=== PATIENT | female | born 1945 | race Caucasian/White ===

== ENCOUNTER 2022-08-01 09:10 | Outpatient (OUT) | payer MEDICARE, SELFPAY ==
[2022-08-01 10:42] LABS: Alanine Aminotransferase 75 U/L (14-59); Albumin Globulin Ratio 1.1; Albumin Level 3.7 g/dL (3.4-5.0); Alkaline Phosphatase 79 U/L (46-116); Aspartate Amino Transferase 46 U/L (15-37); BUN Creatinine Ratio 21.7; Bilirubin Total 0.6 mg/dL (0.2-1.0); Calcium 9.3 mg/dL (8.5-10.1); Carbon Dioxide 33.2 mmol/L (21.0-32.0); Chloride 104 mmol/L (98-107); Estimated GFR (African America >60 (>=60); Estimated GFR (Non-African Ame >60 (>=60); Globulin 3.5 g/dL; Glucose 122 mg/dL (74-106); Potassium 4.2 mmol/L (3.5-5.1); Sodium 142 mmol/L (136-145); Total Protein 7.2 g/dL (6.4-8.2)
[2022-08-01 10:43] LABS: Estimated Average Glucose 126 mg/dL
[2022-08-01 10:50] LABS: Thyroid Stimulating Hormone 4.137 uIU/mL (0.358-3.740)
== END 2022-08-01 09:11 ==
LOC: LAB 09:15
PROVIDERS: PCP Internal Medicine; Visit Provider Internal Medicine
DX: R74.01 Elevation of levels of liver transaminase levels (principal); E11.65 Type 2 diabetes mellitus with hyperglycemia; R63.4 Abnormal weight loss
CPT/HCPCS: 36415; 80053; 83036; 84443

== ENCOUNTER 2022-11-08 08:34 | Outpatient (OUT) | payer MEDICARE, SELFPAY ==
[2022-11-08 10:17] LABS: Free T4 0.73 ng/dL (0.76-1.46)
[2022-11-08 10:22] LABS: Thyroid Stimulating Hormone 3.238 uIU/mL (0.358-3.740)
[2022-11-08 10:52] LABS: Estimated Average Glucose 134 mg/dL; Glycohemoglobin A1C 6.3 % (4.5-6.2)
[2022-11-09 04:07] LABS: Triiodothyronine (T3) 72 ng/dL (71-180)
== END 2022-11-08 08:35 | disposition home or self-care (01) ==
LOC: LAB 08:36
PROVIDERS: PCP Internal Medicine; Visit Provider Internal Medicine
DX: E11.65 Type 2 diabetes mellitus with hyperglycemia (principal); R79.89 Other specified abnormal findings of blood chemistry
CPT/HCPCS: 36415; 83036; 84439; 84443; 84480

== ENCOUNTER 2023-05-07 16:06 | Outpatient (OUT) | payer MEDICARE, SELFPAY ==
--- NOTE | 2023-05-07 16:08 | MM_ITS ---
Patient Name: EDITH ALLISON MR#: [id number] : 1945 Exam Date: 05/07/2023 Ordering Doctor: DR Venkata Bae D.O. RADIOLOGY REPORT PROCEDURE: MM TOMOSYNTHESIS SCREENING BI COMPARISON: MG MAMM SCREEN 3D FELIX CAD, 05/03/2022. MG MAMM DIAGNOSTIC 3D FELIX CAD, 07/05/2021. MG MAMM DIAGNOSTIC 3D FELIX CAD, 07/04/2020. MAMMO POST BIOPSY UNILATERAL RIGHT, 04/24/2012. INDICATIONS: screening Calculator Name NCI Breast Cancer Risk Assessment Tool 5 Year Breast Cancer Risk n/a% Lifetime Breast Cancer Risk n/a% Personal Breast Cancer Yes, Right lumpectomy 2019 with radiation Personal Ovarian Cancer No Treatments None Family Cancers Grandmother-maternal with oral cancer cancer at age ~70; Sister with skin cancer at age 45; Niece with skin cancer at age 35. LOCATION: [facility] BREAST COMPOSITION: Scattered areas fibroglandular density. FINDINGS: DIAGNOSTIC CATEGORY 2--BENIGN FINDING: RIGHT BREAST: No significant suspicious finding. Scattered benign-appearing calcifications are present. Stable surgical changes. No significant change has occurred. LEFT BREAST: No significant suspicious finding. Scattered benign-appearing calcifications are present. No significant change has occurred. RECOMMENDATIONS: ROUTINE MAMMOGRAM AND CLINICAL EVALUATION IN 12 MONTHS. PLEASE NOTE: A NORMAL MAMMOGRAM DOES NOT EXCLUDE THE POSSIBILITY OF BREAST CANCER. A CLINICALLY SUSPICIOUS PALPABLE LUMP SHOULD BE BIOPSIED. Dictated by: Mario Pritchard M.D. on 05/08/2023 at 11:26 Approved by: Mario Pritchard M.D. on 05/08/2023 at 11:29
== END 2023-05-07 16:07 | disposition home or self-care (01) ==
LOC: MAMMO 16:06
PROVIDERS: PCP Internal Medicine; Visit Provider Internal Medicine
DX: Z12.31 Encounter for screening mammogram for malignant neoplasm of breast (principal); Z80.8 Family history of malignant neoplasm of other organs or systems
CPT/HCPCS: 77063; 77067

== ENCOUNTER 2023-07-17 16:14 | Outpatient (OUT) | payer MEDICARE, SELFPAY ==
[2023-07-17 17:24] LABS: Estimated Average Glucose 140 mg/dL; Glycohemoglobin A1C 6.5 % (4.5-6.2)
== END 2023-07-17 16:15 | disposition home or self-care (01) ==
LOC: LAB 16:15
PROVIDERS: PCP Internal Medicine; Visit Provider Internal Medicine
DX: E11.65 Type 2 diabetes mellitus with hyperglycemia (principal)
CPT/HCPCS: 36415; 83036

== ENCOUNTER 2024-05-12 15:37 | Outpatient (OUT) | payer MEDICARE, SELFPAY ==
--- NOTE | 2024-05-12 15:55 | MM_ITS ---
Patient Name: EDITH ALLISON MR#: [id number] : 1945 Exam Date: 05/12/2024 Ordering Doctor: DR Venkata Bae D.O. RADIOLOGY REPORT PROCEDURE: MM TOMOSYNTHESIS SCREENING BI COMPARISON: MM TOMOSYNTHESIS SCREENING BI, 05/07/2023. MG MAMM SCREEN 3D FELIX CAD, 05/03/2022. MG MAMM DIAGNOSTIC 3D FELIX CAD, 07/05/2021. MAMMO POST BIOPSY UNILATERAL RIGHT, 04/24/2012. INDICATIONS: Screening for malignant neoplasm Calculator Name NCI Breast Cancer Risk Assessment Tool 5 Year Breast Cancer Risk n/a% Lifetime Breast Cancer Risk n/a% Personal Breast Cancer Yes, Right lumpectomy 2019 with radiation Personal Ovarian Cancer No Treatments None Family Cancers Grandmother-maternal with oral cancer cancer at age ~70; Sister with skin cancer at age 45; Niece with skin cancer at age 35. LOCATION: [facility] BREAST COMPOSITION: There are scattered areas of fibroglandular density. FINDINGS: DIAGNOSTIC CATEGORY 1--NEGATIVE. RIGHT BREAST: No significant suspicious finding. LEFT BREAST: No significant suspicious finding. RECOMMENDATIONS: ROUTINE MAMMOGRAM AND CLINICAL EVALUATION IN 12 MONTHS. PLEASE NOTE: A NORMAL MAMMOGRAM DOES NOT EXCLUDE THE POSSIBILITY OF BREAST CANCER. A CLINICALLY SUSPICIOUS PALPABLE LUMP SHOULD BE BIOPSIED. Dictated by: Marco A Shepherd DO on 05/12/2024 at 16:30 Approved by: Marco A Shepherd DO on 05/12/2024 at 16:33
[2024-05-12 16:18] LABS: Microalbumin Urine Random <1.3 mg/dL (<=30.0)
[2024-05-12 16:21] LABS: Basophils Percent Auto 0.4 % (0.2-2.0); Eosinophils Absolute Auto 0.2 10^3/uL (0.0-0.7); Eosinophils Percent Auto 2.8 % (0.9-7.0); Estimated Average Glucose 143 mg/dL; Glycohemoglobin A1C 6.6 % (4.5-6.2); Hematocrit 39.8 % (36.0-48.0); Hemoglobin 12.9 g/dL (12.0-16.0); Immature Granulocytes Abs Auto 0.03 10^3/uL (0.00-0.03); Immature Granulocytes Pct Auto 0.4 % (0.0-0.5); Lymphocytes Absolute Auto 1.9 10^3/uL (1.2-3.8); Lymphocytes Percent Auto 27.9 % (20.5-60.0); Mean Corpuscular HGB Conc 32.4 g/dL (29.9-35.2); Mean Corpuscular Hemoglobin 31.4 pg (26.7-34.0); Mean Corpuscular Volume 96.8 fL (81.0-99.0); Mean Platelet Volume 9.1 fL (9.5-13.5); Monocytes Absolute Auto 0.6 10^3/uL (0.3-0.8); Monocytes Percent Auto 8.3 % (1.7-12.0); Neutrophils Absolute Auto 4.1 10^3/uL (1.4-6.5); Neutrophils Percent Auto 60.2 % (43.0-75.0); Platelet Count 147 10^3/uL (150-450); Red Blood Count 4.11 10^6/uL (4.20-5.40); Red Cell Distribution Width 12.3 % (11.0-15.0); White Blood Count 6.8 10^3/uL (4.0-11.0)
[2024-05-12 17:31] LABS: Alanine Aminotransferase 32 U/L (14-59); Alkaline Phosphatase 88 U/L (46-116); Anion Gap 9.7; Aspartate Amino Transferase 20 U/L (15-37); BUN Creatinine Ratio 28.6; Bilirubin Total 0.5 mg/dL (0.2-1.0); Calcium 9.1 mg/dL (8.5-10.1); Carbon Dioxide 32.2 mmol/L (21.0-32.0); Chloride 102 mmol/L (98-107); Estimated GFR (African America >60 (>=60 mL/min/1.73m^2); Estimated GFR (Non-African Ame >60 (>=60 mL/min/1.73m^2); Glucose 96 mg/dL (74-106); Potassium 3.9 mmol/L (3.5-5.1); Sodium 140 mmol/L (136-145); Total Protein 7.3 g/dL (6.4-8.2)
[2024-05-12 17:32] LABS: Albumin Globulin Ratio 1.2; Chol HDL Ratio 2.1; Cholesterol 151 mg/dL (<=200); Globulin 3.3 g/dL; HDL Cholesterol 73 mg/dL (40-60); Thyroid Stimulating Hormone 2.834 uIU/mL (0.358-3.740); Triglycerides 82 mg/dL (<=150); VLDL CHOLESTEROL 16.4 mg/dL
== END 2024-05-12 15:38 | disposition home or self-care (01) ==
LOC: MAMMO 15:38
PROVIDERS: PCP Internal Medicine; Visit Provider Internal Medicine
DX: Z12.31 Encounter for screening mammogram for malignant neoplasm of breast (principal); E11.65 Type 2 diabetes mellitus with hyperglycemia; E03.8 Other specified hypothyroidism; I10 Essential (primary) hypertension; E78.00 Pure hypercholesterolemia, unspecified; Z85.3 Personal history of malignant neoplasm of breast; Z80.8 Family history of malignant neoplasm of other organs or systems
CPT/HCPCS: 36415; 77063; 77067; 80053; 80061; 82043; 82570; 83036; 84443; 85025